=== PATIENT | female | born 1980 | race Caucasian/White ===

== ENCOUNTER 2016-11-13 03:56 | Emergency (ER) | payer SELFPAY ==
[~2016-11-13] VITALS: Ht 177.8 cm; Wt 65.8 kg
[2016-11-13 04:05] VITALS: BP 130/85
== END 2016-11-13 04:24 | disposition home or self-care (01) ==
LOC: ER 04:04
DX: Z04.1 Encounter for examination and observation following transport accident (principal); V49.9XXA Car occupant (driver) (passenger) injured in unspecified traffic accident, initial encounter; Y93.89 Activity, other specified; Y92.89 Other specified places as the place of occurrence of the external cause; Y99.9 Unspecified external cause status
CPT/HCPCS: 99281; A4606; Z7610; Z7502